=== PATIENT | male | born 1940 | race Caucasian/White ===

== ENCOUNTER 2018-05-17 23:42 | Emergency (ER) | payer MEDICARE ==
[~2018-05-17] VITALS: Ht 180.3 cm; Wt 85.3 kg
[~2018-05-17 23:42] MED LIST: BACTRIM; VICODIN
[2018-05-18 00:52] LABS: Basophils # (auto) 0.1 uL; Basophils % (auto) 0.8 % (0.0-2.0); Eosinophils # (auto) 0.2 uL; Hematocrit 50.8 % (41.0-53.0); Hemoglobin 16.7 g/dL (13.5-17.5); Lymphocytes # (auto) 2.7 uL; Lymphocytes % (auto) 32.2 % (10.0-50.0); Mean Corpuscular Hemoglobin 31.5 pg (28.0-32.0); Mean Corpuscular Hgb Conc. 32.9 g/dL (32.0-36.0); Mean Corpuscular Volume 95.7 fL (80.0-100.0); Monocytes # (auto) 0.7 uL; Neutrophils # (auto) 4.6 uL; Nucleated Red Blood Cells % 0.1 %; Platelet Count (auto) 266 10^3/uL (140-450); Red Blood Cells 5.31 10^6/uL (4.5-5.90); Red Cell Distribution Width 13.6 % (11.8-14.3); White Blood Cell 8.2 10^3/uL (4.4-10.8)
[2018-05-18 00:59] LABS: INR 1.04 (0.9-1.15); Partial Thromboplastin Time 27.5 sec (23.78-33.04); Prothrombin Time 11.1 sec (9.27-12.13)
[2018-05-18 01:03] LABS: Alanine Aminotransferase 52 U/L (16-61); Albumin 3.5 g/dL (3.4-5.0); Anion Gap 12 (5-15); Aspartate Aminotransferase 57 U/L (15-37); BUN/Creatinine Ratio 13.8; Blood Urea Nitrogen 20 mg/dL (7-18); Calcium 8.6 mg/dL (8.5-10.1); Carbon Dioxide 22 mmol/L (21-32); Chloride 106 mmol/L (98-107); GFR African American 61 mL/min; GFR Non-African American 50 mL/min; Glucose 138 mg/dL (74-106); Magnesium 2.2 mg/dL (1.6-2.6); Potassium 3.4 mmol/L (3.5-5.1); Sodium 140 mmol/L (136-145)
[2018-05-18 01:08] LABS: Alkaline Phosphatase 117 U/L (45-117); Bilirubin, Total 1.1 mg/dL (0.2-1.0); Total Protein 8.1 g/dL (6.4-8.2)
[2018-05-18] MEDS ORDERED: POTASSIUM CHL 20 Meq TABLET PO ONE (04:30)
[2018-05-18 05:30] VITALS: BP 140/95
== END 2018-05-18 05:57 | disposition home or self-care (01) ==
LOC: ER 23:42
DX: R00.2 Palpitations (principal); R53.1 Weakness; R07.9 Chest pain, unspecified; Z79.899 Other long term (current) drug therapy
CPT/HCPCS: 36415; 71045; 80053; 83735; 83880; 84443; 84484; 85025; 85610; 85730; 93005

== ENCOUNTER 2024-02-10 02:56 | Inpatient (IN) | payer MEDICARE ==
[~2024-02-10] VITALS: Ht 175.3 cm; Wt 87.5 kg
[~2024-02-10 02:56] MED LIST changes: +CHOL500013 PO; +CLOP75TA70 PO; +FINA5TAB4 PO; +TAMS0.4C39 PO
[2024-02-10] MEDS: HYDROcodone-ACET 5/325MG TAB PO ONE (06:14)
[2024-02-10] MEDS: GABAPENTIN 300 MG CAP PO ONE (06:14)
[2024-02-10 06:23] LABS: Urine Bacteria None Seen /hpf (None Seen)
[2024-02-10 06:29] LABS: Urine Blood Negative /uL (Negative); Urine Clarity Turbid (Clear); Urine Color Yellow (Yellow); Urine Mucus FEW (None Seen); Urine Protein, UAD 1+ (Negative); Urine Specific Gravity 1.024 (1.001-1.035); Urine Urobilinogen 4 mg/dL (Negative); Urine WBC 241 /hpf (0 - 3); Urine pH 6.5 (5.0-9.0)
[2024-02-10 07:09] LABS: Basophils # (auto) 0.1 10 ^3/uL (0-0.2); Basophils % (auto) 0.7 % (0.0-2.0); Eosinophils # (auto) 0.1 10 ^3/uL (0-0.8); Eosinophils % (auto) 0.5 % (0.0-7.0); Hematocrit 31.9 % (41.0-53.0); Hemoglobin 9.8 g/dL (13.5-17.5); Lymphocytes % (auto) 20.1 % (10.0-50.0); Mean Corpuscular Hgb Conc. 30.8 g/dL (32.0-36.0); Mean Corpuscular Volume 77.7 fL (80.0-100.0); Monocytes # (auto) 1.8 10 ^3/uL (0-1.3); Monocytes % (auto) 17.6 % (0.0-12.0); Neutrophils # (auto) 6.1 10 ^3/uL (1.6-8.6); Neutrophils % (auto) 61.1 % (37.0-80.0); Nucleated Red Blood Cells % 0.1 %; Platelet Count (auto) 215 10^3/uL (140-450); Red Cell Distribution Width 17.5 % (11.8-14.3)
[2024-02-10 07:15] LABS: Chloride 108 mmol/L (98-107); Potassium 3.6 mmol/L (3.5-5.1); Sodium 138 mmol/L (136-145)
[2024-02-10 07:16] LABS: Anion Gap 6 (5-15); Calcium 9.2 mg/dL (8.7-10.4); Carbon Dioxide 24 mmol/L (20-31)
[2024-02-10 07:20] LABS: Uric Acid 5.8 mg/dL (3.7-9.2)
[2024-02-10 07:21] LABS: BUN/Creatinine Ratio 12.1 (10.0-20.0); Blood Urea Nitrogen 15 mg/dL (9-23); Glucose 122 mg/dL (74-106)
[2024-02-10 08:34] LABS: INR 1.16 (0.9-1.15); Prothrombin Time 12.2 sec (9.3-11.8)
[2024-02-10] MEDS ORDERED: NITROGLYCERIN 0.4 MG SL TAB SL PRN (11:00)
[2024-02-10 11:44] LABS: Ferritin 11.1 ng/mL (22-322); Folate (Folic Acid) 15.33 ng/mL (>5.38)
[2024-02-10 11:45] LABS: % Iron Saturation 8.4 % (20-55)
[2024-02-10 13:00] VITALS: RESP 16; O2SAT 97
[2024-02-10] MEDS: PANTOPRAZOLE 40 MG/10 ML VIAL INJ IV ONE (13:00)
[2024-02-10] MEDS: cefTRIAXone 1GM/50ML D5W 50 ML IV ONE (13:00)
[2024-02-10] MEDS: ONDANSETRON HCL 4 MG/2 ML VIAL IV PRN (14:00)
[2024-02-10] MEDS: MORPHINE SULFATE INJ 2 MG/ml SYRG IV PRN (14:17)
[2024-02-10] MEDS: SODIUM CHLORIDE 0.9% 500 ML IV ONE (14:32)
[2024-02-10] MEDS: ENOXAPARIN SOD 80 MG/0.8ML SYRINGE SC ONE (14:32)
[2024-02-10 20:32] VITALS: PULSE 105; RESP 24; O2SAT 95
[2024-02-10] MEDS: GABAPENTIN 300 MG CAP PO SCH (21:17)
[2024-02-10] MEDS: ENOXAPARIN SOD 80 MG/0.8ML SYRINGE SC SCH (21:18)
[2024-02-10 22:27] LABS: Alanine Aminotransferase 10 U/L (7-40); Albumin 3.6 g/dL (3.2-4.8); Alkaline Phosphatase 139 U/L (46-116); Anion Gap 6 (5-15); Aspartate Aminotransferase 21 U/L (13-40); BUN/Creatinine Ratio 13.7 (10.0-20.0); Bilirubin, Total 0.9 mg/dL (0.2-1.0); Blood Urea Nitrogen 17 mg/dL (9-23); Carbon Dioxide 23 mmol/L (20-31); Chloride 108 mmol/L (98-107); Glucose 152 mg/dL (74-106); Potassium 3.5 mmol/L (3.5-5.1); Sodium 137 mmol/L (136-145); Total Protein 7.1 g/dL (5.7-8.2)
[2024-02-10 22:29] VITALS: PULSE 110
[2024-02-10 22:52] LABS: Erythrocyte Sedimentation Rate 52 mm/hr (0-20)
[2024-02-10 23:08] VITALS: BP 147/84; PULSE 116; RESP 15; TEMP 98.4; O2SAT 96
[2024-02-11] VITALS (9 sets, daily range): BP systolic 103–136; BP diastolic 65–81; PULSE 92–131; RESP 16–20; TEMP 97.8–99.3; O2SAT 90–98
[2024-02-11] MEDS ORDERED: FAMO-12 PO (00:15)
[2024-02-11] MEDS ORDERED: CHOL20007 OR (00:15)
[2024-02-11] MEDS ORDERED: ASPI-543 PO (00:15)
[2024-02-11] MEDS ORDERED: PRAV20TA3 PO (00:15)
[2024-02-11] MEDS ORDERED: GABA-1250 PO (00:15)
[2024-02-11] MEDS ORDERED: METO25TA5 PO (00:15)
[2024-02-11 06:01] LABS: Basophils # (auto) 0.1 10 ^3/uL (0-0.2); Lymphocytes # (auto) 1.8 10 ^3/uL (0.4-5.4); Platelet Count (auto) 179 10^3/uL (140-450)
[2024-02-11 06:05] LABS: Eosinophils # (auto) 0.1 10 ^3/uL (0-0.8); Eosinophils % (auto) 1.6 % (0.0-7.0); Hematocrit 28.3 % (41.0-53.0); Lymphocytes % (auto) 20.6 % (10.0-50.0); Mean Corpuscular Hemoglobin 24.5 pg (28.0-32.0); Mean Corpuscular Hgb Conc. 31.7 g/dL (32.0-36.0); Mean Corpuscular Volume 77.4 fL (80.0-100.0); Monocytes # (auto) 1.3 10 ^3/uL (0-1.3); Monocytes % (auto) 15.6 % (0.0-12.0); Neutrophils # (auto) 5.2 10 ^3/uL (1.6-8.6); Neutrophils % (auto) 61.2 % (37.0-80.0); Red Blood Cells 3.66 10^6/uL (4.5-5.90); White Blood Cell 8.5 10^3/uL (4.4-10.8)
[2024-02-11 06:25] LABS: Alkaline Phosphatase 130 U/L (46-116); Anion Gap 8 (5-15); BUN/Creatinine Ratio 13.6 (10.0-20.0); Blood Urea Nitrogen 14 mg/dL (9-23); Calcium 8.7 mg/dL (8.7-10.4); Carbon Dioxide 24 mmol/L (20-31); Chloride 107 mmol/L (98-107); Glucose 106 mg/dL (74-106); Potassium 3.7 mmol/L (3.5-5.1); Sodium 139 mmol/L (136-145)
[2024-02-11 06:26] LABS: Alanine Aminotransferase < 9 U/L (7-40); Albumin 3.3 g/dL (3.2-4.8); Aspartate Aminotransferase 20 U/L (13-40); Bilirubin, Total 0.9 mg/dL (0.2-1.0); Total Protein 6.6 g/dL (5.7-8.2)
[2024-02-11] MEDS: cefTRIAXone 1GM/50ML D5W 50 ML IV SCH (08:47)
[2024-02-11] MEDS: PANTOPRAZOLE 40 MG/10 ML VIAL INJ IV SCH (08:47)
[2024-02-11] MEDS: COLCHICINE 0.6 MG CAP PO SCH (08:47)
[2024-02-11] MEDS: DOCUSATE SOD 100 MG CAP PO PRN (08:48)
[2024-02-11] MEDS: ALLOPURINOL 100 MG TAB PO SCH (08:50)
[2024-02-11] MEDS ORDERED: cefTRIAXone 1GM/50ML D5W 50 ML IV SCH (09:00)
[2024-02-11] MEDS ORDERED: HEPARIN SODIUM (PORCINE) 5000 UNITS/ML 1ML VIAL IV ONE (14:30)
[2024-02-11 17:12] LABS: Basophils # (auto) 0.1 10 ^3/uL (0-0.2); Basophils % (auto) 0.7 % (0.0-2.0); Eosinophils # (auto) 0.2 10 ^3/uL (0-0.8); Eosinophils % (auto) 2.6 % (0.0-7.0); Hematocrit 29.4 % (41.0-53.0); Hemoglobin 9.1 g/dL (13.5-17.5); Lymphocytes # (auto) 1.4 10 ^3/uL (0.4-5.4); Mean Corpuscular Hemoglobin 24.1 pg (28.0-32.0); Mean Corpuscular Hgb Conc. 30.9 g/dL (32.0-36.0); Mean Corpuscular Volume 77.9 fL (80.0-100.0); Monocytes # (auto) 1.2 10 ^3/uL (0-1.3); Monocytes % (auto) 16.7 % (0.0-12.0); Neutrophils # (auto) 4.5 10 ^3/uL (1.6-8.6); Platelet Count (auto) 191 10^3/uL (140-450); Red Blood Cells 3.77 10^6/uL (4.5-5.90); Red Cell Distribution Width 17.5 % (11.8-14.3); White Blood Cell 7.3 10^3/uL (4.4-10.8)
[2024-02-11 17:37] LABS: INR 1.16 (0.9-1.15); Partial Thromboplastin Time 36.2 SEC (24.5-34.5); Prothrombin Time 12.2 sec (9.3-11.8)
[2024-02-11] MEDS: HEPARIN DRIP/D5W 100UNITS/ML 250 ML IV SCH (21:18)
[2024-02-11] MEDS: METOPROLOL TARTRATE 25 MG TAB PO SCH (23:22)
[2024-02-11] MEDS: FAMOTIDINE 20 MG TAB PO SCH (23:23)
[2024-02-12] VITALS (8 sets, daily range): BP systolic 112–130; BP diastolic 63–72; PULSE 91–105; RESP 16–19; TEMP 97.7–99.8; O2SAT 92–97
[2024-02-12 01:45] LABS: INR 1.17 (0.9-1.15); Prothrombin Time 12.3 sec (9.3-11.8)
[2024-02-12] MEDS: HEPARIN DRIP/D5W 100UNITS/ML 250 ML IV SCH (02:00)
[2024-02-12 12:02] LABS: Basophils # (auto) 0.1 10 ^3/uL (0-0.2); Basophils % (auto) 0.9 % (0.0-2.0); Eosinophils # (auto) 0.4 10 ^3/uL (0-0.8); Lymphocytes # (auto) 1.5 10 ^3/uL (0.4-5.4); Mean Corpuscular Hemoglobin 23.8 pg (28.0-32.0); Mean Corpuscular Hgb Conc. 30.6 g/dL (32.0-36.0); Red Blood Cells 3.77 10^6/uL (4.5-5.90)
[2024-02-12 12:04] LABS: Eosinophils % (auto) 5.4 % (0.0-7.0); Hematocrit 29.3 % (41.0-53.0); Lymphocytes % (auto) 19.8 % (10.0-50.0); Mean Corpuscular Volume 77.9 fL (80.0-100.0); Monocytes # (auto) 1.3 10 ^3/uL (0-1.3); Monocytes % (auto) 17.3 % (0.0-12.0); Neutrophils # (auto) 4.2 10 ^3/uL (1.6-8.6); Neutrophils % (auto) 56.6 % (37.0-80.0); Nucleated Red Blood Cells % 0.1 %; Platelet Count (auto) 185 10^3/uL (140-450); Red Cell Distribution Width 17.5 % (11.8-14.3); White Blood Cell 7.4 10^3/uL (4.4-10.8)
[2024-02-12 12:19] LABS: INR 1.13 (0.9-1.15); Partial Thromboplastin Time 63.6 SEC (24.5-34.5); Prothrombin Time 11.9 sec (9.3-11.8)
[2024-02-12 21:07] LABS: INR 1.13 (0.9-1.15); Prothrombin Time 11.9 sec (9.3-11.8)
[2024-02-13] VITALS (8 sets, daily range): BP systolic 112–138; BP diastolic 69–76; PULSE 85–104; RESP 16–20; TEMP 97.9–98.8; O2SAT 92–95
[2024-02-13 07:12] LABS: Basophils # (auto) 0.1 10 ^3/uL (0-0.2); Eosinophils # (auto) 0.5 10 ^3/uL (0-0.8); Hemoglobin 8.5 g/dL (13.5-17.5); Lymphocytes # (auto) 1.9 10 ^3/uL (0.4-5.4); Monocytes # (auto) 1.1 10 ^3/uL (0-1.3); Red Cell Distribution Width 17.9 % (11.8-14.3)
[2024-02-13 07:17] LABS: Basophils % (auto) 1.1 % (0.0-2.0); Eosinophils % (auto) 6.3 % (0.0-7.0); Hematocrit 27.1 % (41.0-53.0); Mean Corpuscular Hemoglobin 24.9 pg (28.0-32.0); Mean Corpuscular Hgb Conc. 31.4 g/dL (32.0-36.0); Mean Corpuscular Volume 79.1 fL (80.0-100.0); Monocytes % (auto) 14.9 % (0.0-12.0); Neutrophils # (auto) 3.9 10 ^3/uL (1.6-8.6); Neutrophils % (auto) 51.7 % (37.0-80.0); Platelet Count (auto) 172 10^3/uL (140-450); Red Blood Cells 3.42 10^6/uL (4.5-5.90); White Blood Cell 7.5 10^3/uL (4.4-10.8)
[2024-02-13 07:31] LABS: INR 1.14 (0.9-1.15); Partial Thromboplastin Time 69.1 SEC (24.5-34.5)
[2024-02-13 11:43] LABS: INR 1.1 (0.9-1.15); Prothrombin Time 11.6 sec (9.3-11.8)
[2024-02-13 11:46] LABS: Partial Thromboplastin Time 83.4 SEC (24.5-34.5)
[2024-02-13 19:56] LABS: INR 1.13 (0.9-1.15); Prothrombin Time 11.9 sec (9.3-11.8)
[2024-02-13] MEDS: HYDROcodone-ACET 5/325MG TAB PO ONE (21:07)
[2024-02-13] MEDS: HEPARIN DRIP/D5W 100UNITS/ML 250 ML IV SCH (23:25)
[2024-02-14 01:00] VITALS: BP 123/66; PULSE 91; RESP 18; TEMP 98.6; O2SAT 93
[2024-02-14 01:26] LABS: Basophils # (auto) 0.1 10 ^3/uL (0-0.2); Hemoglobin 8.8 g/dL (13.5-17.5); Lymphocytes # (auto) 1.8 10 ^3/uL (0.4-5.4); Lymphocytes % (auto) 26.2 % (10.0-50.0); Mean Corpuscular Hemoglobin 24.2 pg (28.0-32.0); Monocytes # (auto) 0.9 10 ^3/uL (0-1.3); White Blood Cell 7.1 10^3/uL (4.4-10.8)
[2024-02-14 01:28] LABS: Basophils % (auto) 1.2 % (0.0-2.0); Eosinophils # (auto) 0.5 10 ^3/uL (0-0.8); Eosinophils % (auto) 6.6 % (0.0-7.0); Hematocrit 28.5 % (41.0-53.0); Mean Corpuscular Hgb Conc. 30.8 g/dL (32.0-36.0); Mean Corpuscular Volume 78.6 fL (80.0-100.0); Monocytes % (auto) 13.3 % (0.0-12.0); Neutrophils # (auto) 3.7 10 ^3/uL (1.6-8.6); Neutrophils % (auto) 52.7 % (37.0-80.0); Platelet Count (auto) 192 10^3/uL (140-450); Red Blood Cells 3.63 10^6/uL (4.5-5.90); Red Cell Distribution Width 17.8 % (11.8-14.3)
[2024-02-14 05:00] VITALS: BP 109/56; PULSE 94; RESP 16; TEMP 98.2; O2SAT 92
[2024-02-14 07:22] LABS: INR 1.13 (0.9-1.15); Partial Thromboplastin Time 60.1 SEC (24.5-34.5); Prothrombin Time 11.9 sec (9.3-11.8)
[2024-02-14 08:00] VITALS: PULSE 90; PULSE 95; RESP 18; O2SAT 97
[2024-02-14 09:00] VITALS: BP 119/66; PULSE 90; RESP 18; TEMP 98.1; O2SAT 97
[2024-02-14 10:46] VITALS: BP 119/66; PULSE 90; RESP 18; TEMP 98.1; O2SAT 97
[2024-02-14] MEDS ORDERED: ALL100T PO (11:31)
[2024-02-14] MEDS ORDERED: APIX5TAB PO (11:31)
[2024-02-14] MEDS ORDERED: MET25T PO (11:31)
[2024-02-14] MEDS ORDERED: GABA-1250 PO (11:31)
[2024-02-14] MEDS ORDERED: TAMS0.4C39 PO (12:00)
[2024-02-14 13:00] VITALS: BP 114/66; PULSE 93; RESP 16; TEMP 98.3; O2SAT 91
== END 2024-02-14 16:31 | disposition home or self-care (01) | DRG 300 ==
LOC: ER 02:56 → TELE 11:02 → TELE-WESTW 22:05
PROVIDERS: ADMIT Nurse Practitioner Family; ATTEND Internal Medicine
DX: I82.491 Acute embolism and thrombosis of other specified deep vein of right lower extremity (principal); N30.00 Acute cystitis without hematuria; D64.9 Anemia, unspecified; E78.5 Hyperlipidemia, unspecified; I11.0 Hypertensive heart disease with heart failure; I25.10 Atherosclerotic heart disease of native coronary artery without angina pectoris; B96.1 Klebsiella pneumoniae [K. pneumoniae] as the cause of diseases classified elsewhere; I50.9 Heart failure, unspecified; L98.499 Non-pressure chronic ulcer of skin of other sites with unspecified severity; Z87.442 Personal history of urinary calculi; Z95.5 Presence of coronary angioplasty implant and graft
CPT/HCPCS: 36415; 80048; 80053; 81001; 82607; 82728; 82746; 83540; 83550; 83615; 84484; 84550; 85025; 85045; 85610; 85652; 85730; 86850; 86900; 86901; 87086; 87088; 87186; 93925; 93971; 96365; 96372; 96375; G0378; J2405; J2470